=== PATIENT | male | born 1960 | race Caucasian/White ===

== ENCOUNTER 2016-11-04 22:28 | Emergency (ER) | payer OTHER ==
[2016-11-04 23:05] VITALS: BP 109/63; PULSE 76; RESP 18; TEMP 97
[2016-11-04] MEDS ORDERED: KETOROLAC 60 MG/2 ML VIAL IM STA (23:54)
--- NOTE | 2016-11-04 23:57 | ED ---
General Adult HPI - General Chief complaint: Abdominal Pain Stated complaint: abd pain Time Seen by Provider: 11/04/16 23:00 Source: patient, RN notes reviewed Mode of arrival: ambulatory Limitations: no limitations - History of Present Illness Initial comments: This is a 56-year-old male who presents to the emergency department complaining that he may have strained his abdominal muscles. Patient states last 2 weeks he has had abdominal pain anytime he twists or tries to sit up using his abdominal muscles. Patient states when he standing still sitting still or lying still he has no pain whatsoever. It's only when he goes to uses abdominal muscles. Patient denies any fever or chills. Patient denies any nausea vomiting. Patient denies any change in bowel habits. Patient states he' s eating and drinking normally. Patient states palpating his abdomen does not hurt. 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 Patient states has not yet taken anything for the pain. - Related Data Home Medications Medication Instructions Recorded Confirmed ALPRAZolam [Xanax] 0.5 mg PO DAILY PRN 11/14/13 11/04/16 Aspirin EC [Ecotrin] 325 mg PO DAILY 11/14/13 11/04/16 Atenolol [Tenormin] 25 mg PO HS 11/14/13 11/04/16 Simvastatin [Zocor] 40 mg PO HS 11/14/13 11/04/16 Lisinopril [Zestril] 20 mg PO DAILY 11/04/16 11/04/16 Spironolactone [Aldactone] 25 mg PO DAILY 11/04/16 11/04/16 Allergies Allergy/AdvReac Type Severity Reaction Status Date / Time No Known Allergies Allergy Verified 11/04/16 23:28 Review of Systems ROS Statement: Those systems with pertinent positive or pertinent negative responses have been documented in the HPI. ROS Other: All systems not noted in ROS Statement are negative. Past Medical History Past Medical History: Hyperlipidemia, Hypertension, Myocardial Infarction (OR), Seizure Disorder Additional Past Medical History / Comment(s): last seizure as child Last Myocardial Infarction Date:: 2005 History of Any Multi-Drug Resistant Organisms: None Reported Past Surgical History: Heart Catheterization With Stent Additional Past Surgical History / Comment(s): heart catheterizations 2005, 2010 and 08/26/2013 Past Anesthesia/Blood Transfusion Reactions: No Reported Reaction Date of Last Stent Placement:: 08/26/2013 Past Psychological History: Anxiety Smoking Status: Current every day smoker Past Alcohol Use History: Occasional Past Drug Use History: None Reported General Exam - General Exam Comments Initial Comments: GENERAL: Patient is well-developed and well-nourished. Patient is nontoxic and well- hydrated and is in no acute distress. ENT: Neck is soft and supple. No significant lymphadenopathy is noted. Oropharynx is clear. Moist mucous membranes. Neck has full range of motion without eliciting any pain. EYES: The sclera were anicteric and conjunctiva were pink and moist. Extraocular movements were intact and pupils were equal round and reactive to light. Eyelids were unremarkable. PULMONARY: Unlabored respirations. Good breath sounds bilaterally. No audible rales rhonchi or wheezing was noted. CARDIOVASCULAR: There is a regular rate and rhythm without any murmurs gallops or rubs. ABDOMEN: Soft and nontender with normal bowel sounds. No palpable organomegaly was noted. There is no palpable pulsatile mass. Pain can only be elicited. The patient uses abdominal muscles to sit up or sit down or twist SKIN: Skin is clear with no lesions or rashes and otherwise unremarkable. NEUROLOGIC: Patient is alert and oriented x3. Cranial nerves II through XII are grossly intact. Motor and sensory are also intact. Normal speech, volume and content. Symmetrical smile. MUSCULOSKELETAL: Normal extremities with adequate strength and full range of motion. No lower extremity swelling or edema. No calf tenderness. PSYCHIATRIC: Normal psychiatric evaluation. Limitations: no limitations Course Vital Signs 11/04/16 23:01 Temperature 97.0 F L Pulse Rate 76 Respiratory 18 Rate Blood Pressure 109/63 O2 Sat by Pulse 99 Oximetry Disposition Clinical Impression: Abdominal muscle strain Disposition: HOME SELF-CARE Condition: Good Instructions: Muscle Strain (ED) Referrals: None,Stated [Primary Care Provider] - 1-2 days Time of Disposition: 23:57
== END 2016-11-05 00:06 | disposition home or self-care (01) ==
LOC: EC 22:28
DX: S39.011A Strain of muscle, fascia and tendon of abdomen, initial encounter (principal); E78.5 Hyperlipidemia, unspecified; I10 Essential (primary) hypertension; I25.2 Old myocardial infarction; F17.200 Nicotine dependence, unspecified, uncomplicated; Z79.82 Long term (current) use of aspirin; Z79.899 Other long term (current) drug therapy; X50.9XXA Other and unspecified overexertion or strenuous movements or postures, initial encounter
CPT/HCPCS: 99283